=== PATIENT | male | born 1980 | race American Indian/Alaskan Native ===

== ENCOUNTER → 2024-11-17 | Outpatient (CLI) | payer BC, SELFPAY ==
--- NOTE | 2024-11-17 07:30 | XR_ITS ---
Exam: MRI knee without contrast, left Date and time of exam: November 17, 2024 0756 hours INDICATIONS: Injury to the knee 2003 with fracture lateral tibial plateau, anterior medial knee pain beginning September 2024 Technique: Multiple axial, coronal, and sagittal sections on the knee have been obtained. T2-Weighted sagittal, fat-suppressed images, TR 3,500, TE 62, T2 weighted coronal fat-saturated images, TR 3,500, TE 62 Proton density sagittal sections, TR 1800, TE 31. T-1 weighted coronal images, TR 524, TE 13.0 Findings: Medial meniscus anterior horn intact. Medial meniscus, body is intact. Posterior horn medial meniscus horizontal linear tear communicating intermargin sagittal image 2. Lateral meniscus anterior horn is intact Lateral meniscus, body is intact Posterior horn lateral meniscus is intact Anterior cruciate ligament severely attenuated Posterior cruciate ligament appears intact. Knee effusion is small. Quadriceps and patellar tendons appear intact. There is no evidence of tendinosis. Inflammatory change or fracture of Hoffa's fat pad is not seen. Medial patellar facet demonstrates moderate thinning. Lateral patellar facet cartilage demonstrates moderate thinning. Trochlear cartilage demonstrates moderate thinning. Marrow signal adequate. Medial collateral ligament appears intact. No meniscocapsular separation is seen. Illiotibial band and fibular collateral ligament are intact. Biceps femoris tendons appear intact. Medial femoral condylar articular cartilage demonstrates moderate thinning. Lateral femoral condylar articular cartilage demonstratesmoderate thinning. Tibial plateau cartilage demonstrates moderate thinning. Impression: Small horizontal linear tear posterior horn medial meniscus Severe attenuation anterior cruciate ligament
== END | disposition home or self-care (01) ==
PROVIDERS: PCP Nurse Practitioner Family; Referring Provider Nurse Practitioner Family; Visit Provider Nurse Practitioner Family
DX: S83.242A Other tear of medial meniscus, current injury, left knee, initial encounter (principal); X58.XXXA Exposure to other specified factors, initial encounter; M25.862 Other specified joint disorders, left knee
CPT/HCPCS: 73721

== ENCOUNTER → 2025-06-18 | Outpatient (CLI) | payer BC, OTHER, SELFPAY ==
--- NOTE | 2025-06-18 16:26 | XR_ITS ---
Examination: Left elbow 3 views Technique: Elbow AP, oblique, lateral 3 views Exam date and time: June 18, 2025 1627 hrs., Comparison January 30, 2024 Indications: Palpable mobile mass one month. Findings: No fracture or dislocation. No pleural effusion. Minimal soft tissue prominence dorsal to the olecranon No opaque foreign body Impression: Minimal soft tissue prominence dorsal to the olecranon, consider ultrasound soft tissue follow-up.
== END | disposition home or self-care (01) ==
PROVIDERS: PCP Physician Assistant; Referring Provider Nurse Practitioner Family; Visit Provider Nurse Practitioner Family
DX: M10.9 Gout, unspecified (principal); M25.422 Effusion, left elbow; M25.522 Pain in left elbow
CPT/HCPCS: 73080

== ENCOUNTER → 2025-08-23 | Outpatient (CLI) | payer BC, OTHER, SELFPAY ==
--- NOTE | 2025-08-23 14:30 | XR_ITS ---
EXAMINATION: Ultrasound soft tissue extremity left elbow TECHNIQUE: Grayscale sonographic images soft tissue left elbow Date and time: August 23, 2025, 1510 hours INDICATIONS: Left elbow one-point year FINDINGS: No cystic or solid mass noted at the area of concern Soft tissue edema evident IMPRESSION: No cystic or solid mass noted at the area of concern As clinically warranted, consider MRI elbow without contrast follow-up
== END | disposition home or self-care (01) ==
PROVIDERS: PCP Nurse Practitioner Family; Referring Provider Nurse Practitioner Family; Visit Provider Nurse Practitioner Family
DX: M25.422 Effusion, left elbow (principal)
CPT/HCPCS: 76882; J2210; J2274; J2371; J2590; J3490; J2270